=== PATIENT | male | born 1955 | race Caucasian/White ===

== ENCOUNTER 2020-08-15 13:51 | Outpatient (REF) | payer BC, SELFPAY ==
[2020-08-15 14:25] LABS: Hematocrit 48.9 % (42-52); Hemoglobin 16.1 g/dl (14.0-18.0); Mean Corpuscular HGB Conc 32.9 g/dl (31.0-36.0); Mean Corpuscular Hemoglobin 28.8 pg (27.0-33.0); Mean Corpuscular Volume 87.5 fL (80-98); Mean Platelet Volume 9.7 fL (9.4-12.4); Platelet Count 221 X10*3/uL (160-400); Red Blood Count 5.59 X10*6/uL (4.60-5.80); Red Cell Distribution Width 12.8 % (11.0-16.0)
[2020-08-15 14:55] LABS: Alanine Aminotransferase 16 U/L (0-40); Albumin Level 4.4 g/dL (3.5-5.0); Alkaline Phosphatase 65 U/L (39-117); Anion Gap 12 (12-20); Aspartate Amino Transferase 16 U/L (5-37); Bilirubin Total 0.9 mg/dL (0.0-1.0); Blood Urea Nitrogen 20 mg/dL (9-16); Calcium 9.2 mg/dL (8.4-10.2); Carbon Dioxide 31 mmol/L (22-29); Chloride 101 mmol/L (96-108); Cholesterol 173 mg/dL; Estimated Glomerular Filt Rate > 60; Glucose Fasting 89 mg/dL (60-99); HDL Cholesterol 41 mg/dL; LDL Cholesterol Calculated 111 mg/dl; Potassium 3.8 mmol/L (3.3-5.1); Sodium 140 mmol/L (135-145); Total Protein 7.7 g/dL (6.5-8.0); Triglycerides 109 mg/dL
[2020-08-15 14:59] LABS: Creatinine Urine 177.02 mg/dL; Microalbum/Creatinine Ratio Ur 7.3 ug/mg cr
[2020-08-15 15:02] LABS: Prostate Specific Antigen Scr 0.34 ng/mL (<0.05-4.0); TSH reflex Free T4 1.42 uIU/mL (0.32-4.0)
== END 2020-08-15 13:52 | disposition home or self-care (01) ==
LOC: HO.LAB 13:51
PROVIDERS: PCP Physician Assistant; Visit Provider Physician Assistant
DX: Z12.5 Encounter for screening for malignant neoplasm of prostate (principal); E78.2 Mixed hyperlipidemia; I10 Essential (primary) hypertension
CPT/HCPCS: 36415; 80053; 80061; 82043; 84153; 84443; 85027

== ENCOUNTER 2021-03-09 11:39 | Emergency (ER) | payer BC, SELFPAY ==
--- NOTE | ~2021-03-09 | XR_ITS ---
EXAMINATION: XR ANKLE, LEFT CLINICAL INFORMATION: Pain left left ankle. Fall. COMPARISON: None TECHNIQUE: AP, lateral, and mortise views of the left ankle. FINDINGS: There is a nondisplaced fracture distal fibula with moderate lateral malleolar soft tissue swelling. There is old fracture tip of medial malleolus with moderate medial malleolar soft tissue swelling. The ankle mortise and subtalar joints are normal. There is a moderate size calcaneal heel and retrocalcaneal enthesophytes. XR/XR ankle LT min 3V IMPRESSION: Acute nondisplaced distal fibular oblique fracture with moderate lateral malleolar soft tissue swelling. Medial malleolar soft tissue swelling with old small avulsion fracture tip of medial malleolus. Small calcaneal heel and retrocalcaneal enthesophytes.
[2021-03-09 12:15] VITALS: BP 134/106; PULSE 106; RESP 18; TEMP 37.1; O2SAT 96; BMI 29.0
--- NOTE | 2021-03-09 12:25 | ED_ITS ---
HPI - Extremity Injury (Lower) General Chief Complaint: Extremity Injury, Lower Stated Complaint: L ankle injury Time Seen by Provider: 03/09/21 11:54 Source: patient Mode of arrival: ambulatory Limitations: no limitations History of Present Illness HPI Narrative: 65 y/o male presenting for evaluation of left ankle pain and swelling after he twisted it while getting out of bed about 45 minutes ago. He reports the ankle inverted and he fell down onto his left knee. He had immediate pain and swelling on the inside of the left ankle. He is able to walk on it but it is painful and he limps. He is not on blood thinner and he did not sustain any other injuries. MD complaint: ankle injury Onset (ago): hour(s) Type of Injury: inversion Place: home Severity: moderate Severity scale (1-10): 6 Relieving factors: cold therapy and immobilization Exacerbating factors: weight bearing, movement and palpation Context: walking Associated symptoms: swelling and able to partially bear weight Other symptoms: none Treatments prior to arrival: cold therapy Related Data Previous Rx's Medication Instructions Recorded miscellaneous medical supply #1 ea 08/09/20 (Blood Pressure Cuff) amlodipine 10 mg tablet 10 mg PO DAILY #90 tab 02/06/21 hydrochlorothiazide 25 mg tablet 25 mg PO DAILY #90 tab 02/06/21 lisinopril 40 mg tablet 40 mg PO DAILY #90 tab 02/06/21 simvastatin 20 mg tablet 20 mg PO DAILY #90 tab 02/06/21 hydrocodone 5 mg-acetaminophen 325 1 tab PO Q8H PRN #6 tab 03/09/21 mg tablet ibuprofen 600 mg tablet 600 mg PO Q8H PRN #20 tab 03/09/21 Allergies Allergy/AdvReac Type Severity Reaction Status Date / Time No Known Allergies Allergy Verified 08/13/20 18:34 Review of Systems Review of Systems: Constitutional: No Fever, No Chills Cardiovascular: No Chest Pain, No SOB Gastrointestinal: No Nausea, No Vomiting, No abdominal Pain Musculoskeletal: + joint pain, No Myalgias Skin: No Skin Lesions, No rash Neuro: No Weakness, No Numbness, No Dizziness, No Headache Heme/Lymph: + Bruising PMFSH Social History Social History (Updated 08/09/20 @ 17:00 by Colt Mariano PA-C) Alcohol intake: current Alcohol intake frequency: a few times a month Advance Directives: No 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 Physical Exam Vital Signs: Vital Signs: Last Vital Signs Temp 98.8 F 03/09/21 12:15 Pulse 106 H 03/09/21 12:15 Resp 18 03/09/21 12:15 BP 134/106 H 03/09/21 12:15 Pulse Ox 96 03/09/21 12:15 Body Mass Index 29.0 Appearance: Alert. Oriented X3. No acute distress. HEENT: normal inspection CVS: Normal heart rate and rhythm. Pulses normal. Respiratory: No respiratory distress. Skin: Skin warm and dry. Normal skin color. Normal skin turgor. No rashes. Extremities: left ankle with moderate swelling of both the lateral and medial malleolus down into the distal foot with moderate tenderness to the medial aspect. No erythema or warmth. Pain with platarflexion and dorsiflexion. Able to move all digits, 2+ DP pulses. warm and well perfused. Gait not tested due to pain. Neuro: Oriented X 3. No motor deficit. No sensory deficit. Course Course Course Narrative: 65 y/o male presenting with left ankle pain s/p eversion injury this morning. Moderate amount of swelling to the medial ankle. XR pending. Reevaluation(s) Reevaluation #1: XR showing nondisplaced distal fibular oblique fracutre w/ moderate lateral malleolar soft tissue swelling. old small avulsion fx of the medial malleolus. Kya Mendez PA-C made aware of the case - will plan to splint and refer to ortho next week for further management. Patient agrees with plan. NWB status discussed. Reevaluation #2: Splint place by nursing and tech in adequate position. Stable for d/c home and Ortho follow up. Critical Care Time Critical Care Time Critical Care Time: No Discharge Plan Discharge Clinical Impression: Fracture of distal end of fibula Qualifiers: Encounter type: initial encounter Fracture type: closed Fracture morphology: other fracture Laterality: left Qualified Code(s): S82.832A - Other fracture of upper and lower end of left fibula, initial encounter for closed fracture Patient Disposition: Home, Self-Care Instructions: Ankle Fracture (ED) Additional Instructions: Your x-ray showed you broke the end of your fibula bone in your lower leg. Wear the applied splint until you are evaluated by Orthopedics next week Do not get splint wet Do not put any weight on your left foot/leg Elevate your left leg/foot whenever possible Take the prescribed medication as needed for severe pain - do not drive after taking this medication Recommend prescribed ibuprofen to help with mild-moderate pain and swelling. Follow up with Orthopedics - call them on Thursday to make an appointment. Prescriptions: New ibuprofen 600 mg tablet 600 mg PO Q8H PRN (Reason: pain) Qty: 20 RF: 0 hydrocodone-acetaminophen 5-325 mg tablet 1 tab PO Q8H PRN (Reason: pain) Qty: 6 RF: 0 No Action simvastatin 20 mg tablet 20 mg PO DAILY Qty: 90 RF: 1 hydrochlorothiazide 25 mg tablet 25 mg PO DAILY Qty: 90 RF: 1 lisinopril 40 mg tablet 40 mg PO DAILY Qty: 90 RF: 1 amlodipine 10 mg tablet 10 mg PO DAILY Qty: 90 RF: 1 (DME) Blood Pressure Cuff Misc See Rx Instructions .ROUTE .MEDSUPPLY Qty: 1 RF: 0 Referrals: Kya Licona PA-C [Physician [employer]] - 2 days (oblique distal fib fx, nondisplaced) Stand Alone Forms: Work/School Release
[2021-03-09] MEDS: HYDROcodone Bit/Acetam 5/325 TABLET 1 TAB PO (14:50)
== END 2021-03-09 15:40 | disposition home or self-care (01) ==
PROVIDERS: Emergency Provider Emergency Medicine; PCP Internal Medicine
DX: S82.832A Other fracture of upper and lower end of left fibula, initial encounter for closed fracture (principal); X50.1XXA Overexertion from prolonged static or awkward postures, initial encounter; Y93.89 Activity, other specified; Y92.013 Bedroom of single-family (private) house as the place of occurrence of the external cause; Y99.9 Unspecified external cause status
CPT/HCPCS: 29515; 73610; 99284

== ENCOUNTER → 2021-03-11 13:09 | Outpatient (BNVA) | payer BC, SELFPAY | PROVIDERS: PCP Internal Medicine; Visit Provider Physician Assistant ==

== ENCOUNTER 2021-04-05 11:07 | Outpatient (REF) | payer BC, SELFPAY ==
--- NOTE | ~2021-04-05 | XR_ITS ---
EXAMINATION: XR ANKLE, LEFT CLINICAL INFORMATION: Fracture. Pain. COMPARISON: Previous x-ray February 2021 TECHNIQUE: AP, lateral, and mortise views of the left ankle. FINDINGS: There is an oblique fracture of the distal fibular shaft. Fracture line is seen. Alignment is unchanged. There is a triangular-shaped well-corticated ossification projecting over the anterior tibiotalar joint that is unchanged and likely related to old trauma. There is a well-corticated soft tissue ossification seen posterior to the distal fibula and tibia on the lateral view likely related to old trauma as well. There is diffuse soft tissue swelling about the ankle. There may be an ankle joint effusion. There are calcaneal spurs. XR/XR ankle LT min 3V IMPRESSION: Unchanged left lateral malleolar fracture. Soft tissue swelling.
== END 2021-04-05 11:08 | disposition home or self-care (01) ==
LOC: HO.HOSX 11:07
PROVIDERS: PCP Internal Medicine; Visit Provider Physician Assistant
DX: S82.832D Other fracture of upper and lower end of left fibula, subsequent encounter for closed fracture with routine healing (principal)
CPT/HCPCS: 73610

== ENCOUNTER 2021-05-03 08:13 | Outpatient (REF) | payer BC, SELFPAY ==
--- NOTE | ~2021-05-03 | XR_ITS ---
EXAMINATION: XR ANKLE, LEFT CLINICAL INFORMATION: Left ankle pain. COMPARISON: Radiographs of the left ankle done on 04/05/2021 and 03/09/2021. TECHNIQUE: Three views of the left ankle. FINDINGS: Previously documented, clinically known oblique fracture involving the distal part of the left fibula shows no radiographic evidence of healing. Previously documented soft tissue swelling appears improved. Persistent significant soft tissue swelling overlying the medial malleolus. Degenerative osteoarthrosis related changes are noted at the ankle including well-corticated new bone formation projecting inferior to the tip of the malleolus similar to 03/09/2021. Enthesopathy at the insertional site of the Achilles tendon to the calcaneus, small posterior plantar calcaneal spur and mild degenerative osteoarthrosis of the intertarsal joints are also noted, similar to prior study. XR/XR ankle LT min 3V IMPRESSION: 1. No radiographic evidence of healing is noted at the site of the oblique fracture involving the distal fibula since the baseline study dated 03/09/2021. 2. Significant soft tissue swelling overlying the medial malleolus and degenerative osteoarthrosis of the left ankle, intertarsal joints and enthesopathy at the calcaneus appears similar to prior studies.
== END 2021-05-03 08:14 | disposition home or self-care (01) ==
LOC: HO.HOSX 08:13
PROVIDERS: Visit Provider Physician Assistant
DX: S82.832D Other fracture of upper and lower end of left fibula, subsequent encounter for closed fracture with routine healing (principal)
CPT/HCPCS: 73610

== ENCOUNTER 2021-05-03 15:00 | Outpatient (RCR) | payer BC, SELFPAY ==
--- NOTE | 2021-04-18 14:51 | MHC.PT.EP ---
[facility] [place] Office [place] Office [place] Office [address] Vinicius Jaimes [address] [phone] F: [phone] F: [phone] F: [phone] F: [phone] Physical Therapy Plan of Care Date of Evaluation: Date of Surgery: Diagnosis: fx of distal end of L fibula Assessment: 65 y/o M referred to PT with fx distal end of L fibula. He sustained inversion ankle sprain 03/09/21 while getting OOB one morning. He went to ED and distal fibular fx noted. He has been in a tall CAM boot WBAT but has weaned to aso brace. Currently reports pain and difficulty with walking, stairs, standing and work duties. Examination shows decreased ankle AROM, decreased L ankle strength, slightly limited hip strength B, swelling, poor ankle control (signficant difficulty tracing chitimacha/ABCs) and impaired gait pattern. He would benefit from PT 2x/week for 4 weeks to address impairments, implement HEP, and optimize functional mobility. However pt has large co-pay and would like to come 1x/week. Frequency and Duration: The patient will be seen 1x/week for 6 weeks Short Term Goals: 3 weeks 1. I with HEP 2. Improve ankle AROM by 5* all directions 3. Transition to lace up ASO brace per ortho recommendation Software Manager Goals: 6 weeks 1. I with HEP and self management of sx 2. Pt to improve ankle AROM pf by 10* to facilitate walking 3. Pt will be able to ascend/descend stairs in step thorugh pattern with rail and pain < 3/10 Treatment Plan: Modalities to reduce pain, spasms and effusion. Manual therapy to restore motion and function. Therapeutic exercise to improve strength and flexibility. Neuromuscular re-education for posture and balance. Therapeutic activities to return to functional activities of daily living. Electronically signed by: Sylvia Fish PT Please sign and return to therapist. Thank you for your referral.
--- NOTE | 2021-06-04 15:05 | MHC.PT.DC ---
[facility] [place] Office [place] Office [place] Office [address] Vinicius Jaimes [address] [phone] F: [phone] F: [phone] F: [phone] F: [phone] Physical Therapy Discharge Report Diagnosis: fx of distal end of L fibula Date of Surgery: Date of Evaluation: 04/18/21 Date of Discharge: 06/04/21 Treatments to Date: 2 Cancellations to Date: 0 No Shows to Date: 2 Discharge Status: Visit Non-compliance Discharge Summary: He did not f/u with further visits and is d/c at this time. Electronically signed by: Sylvia Fish PT Please sign and return to therapist. Thank you for your referral.
== END 2021-06-04 15:06 | disposition home or self-care (01) ==
LOC: HO.PT 15:00
PROVIDERS: PCP Internal Medicine; Visit Provider Physician Assistant
DX: S82.832D Other fracture of upper and lower end of left fibula, subsequent encounter for closed fracture with routine healing (principal)
CPT/HCPCS: 97110; 97161; 97530

== ENCOUNTER 2021-09-16 13:43 | Outpatient (REF) | payer BC, SELFPAY ==
[2021-09-16 14:45] LABS: Hematocrit 45.7 % (42.0-52.0); Hemoglobin 15.4 g/dl (14.0-18.0); Mean Corpuscular HGB Conc 33.7 g/dl (31.0-36.0); Mean Corpuscular Hemoglobin 28.5 pg (27.0-33.0); Mean Corpuscular Volume 84.5 fL (80.0-98.0); Mean Platelet Volume 9.4 fL (9.4-12.4); Platelet Count 263 X10*3/uL (160-400); Red Blood Count 5.41 X10*6/uL (4.60-5.80); Red Cell Distribution Width 12.6 % (11.0-16.0); White Blood Count 7.6 X10*3/uL (4.8-10.8)
[2021-09-16 15:18] LABS: Alanine Aminotransferase 22 U/L (0-40); Albumin Level 4.6 g/dL (3.5-5.0); Alkaline Phosphatase 72 U/L (39-117); Anion Gap 14 (12-20); Aspartate Amino Transferase 21 U/L (5-37); Bilirubin Total 0.6 mg/dL (0.0-1.0); Blood Urea Nitrogen 12 mg/dL (9-16); Calcium 9.6 mg/dL (8.4-10.2); Carbon Dioxide 26 mmol/L (22-29); Chloride 102 mmol/L (96-108); Cholesterol 150 mg/dL; Estimated Glomerular Filt Rate > 60; Glucose Fasting 92 mg/dL (60-99); HDL Cholesterol 49 mg/dL; LDL Cholesterol Calculated 78 mg/dl; Potassium 3.8 mmol/L (3.3-5.1); Sodium 138 mmol/L (135-145); Total Protein 8.1 g/dL (6.5-8.0); Triglycerides 117 mg/dL
[2021-09-16 15:43] LABS: Prostate Specific Antigen Scr 0.37 ng/mL (<0.05-4.0); TSH reflex Free T4 1.99 uIU/mL (0.32-4.0)
[2021-09-16 17:35] LABS: Creatinine Urine 91.71 mg/dL; Microalbum/Creatinine Ratio Ur 23.9 ug/mg cr
== END 2021-09-16 13:44 | disposition home or self-care (01) ==
LOC: HO.LAB 13:43
PROVIDERS: PCP Physician Assistant; Visit Provider Physician Assistant
DX: Z12.5 Encounter for screening for malignant neoplasm of prostate (principal); I10 Essential (primary) hypertension
CPT/HCPCS: 36415; 80053; 80061; 82043; 84153; 84443; 85027

== ENCOUNTER 2021-10-30 13:51 | Outpatient (REF) | payer BC, SELFPAY ==
--- NOTE | ~2021-10-30 | US_ITS ---
EXAMINATION: US RETROPERITONEAL LIMITED (AORTA) CLINICAL INFORMATION: Hypertension. Former smoker. Screening for abdominal aortic aneurysm. COMPARISON: None TECHNIQUE: Caicedo-scale, color Doppler and spectral Doppler evaluation of the abdominal aorta. FINDINGS: The measurements of the aorta in maximum AP and transverse dimensions respectively are as follows: Proximal: 3.0 x 2.9 cm. Mid: 2.6 x 2.5 cm. Distal: 2.0 x 2.2 cm. PSV: 121 cm/s. The measurements of the common iliac arteries in maximum AP and TRV dimensions are as follows: Right: AP: 1.3 cm. TRV: 1.5 cm. Left: AP: 1.3 cm. TRV: 1.5 cm. ADDITIONAL FINDINGS: Left kidney appears to be at the level of the umbilicus questionably being ectopic. No bridging with appearance of horseshoe kidney is appreciated on the provided imaging. US/US aorta IMPRESSION: No abdominal aortic aneurysm identified.
== END 2021-10-30 13:52 | disposition home or self-care (01) ==
LOC: HO.HMGCX 13:51
PROVIDERS: Visit Provider Physician Assistant
DX: I10 Essential (primary) hypertension (principal); F17.200 Nicotine dependence, unspecified, uncomplicated
CPT/HCPCS: 76775

== ENCOUNTER 2022-04-22 10:43 | Day surgery (SDC) | payer BC, SELFPAY ==
[2022-04-16 14:18] VITALS: BMI 29.0
--- NOTE | 2022-04-21 11:00 | P.CONAN_ITS ---
Documented by User: Andreea Way NP 04/21/22 11:01 HPI - Anesthesia Eval Consult details Narrative: 66yo M for Upper Endoscopy and Colonoscopy PMFSH Active Problems Active Problems: All Active Problems (Updated 03/13/22 @ 15:53 by Colt Mariano PA-C) Epigastric pain (Acute) Encounter for screening colonoscopy (Acute) Obese (Acute) Tinea versicolor (Acute) GERD (gastroesophageal reflux disease) (Acute) Smoker (Acute) Screening for AAA (abdominal aortic aneurysm) (Acute) Fracture of distal end of left fibula with routine healing (Acute) Fracture of distal end of left fibula (Acute) Colon cancer screening (Acute) HLD (hyperlipidemia) (Acute) HTN (hypertension) (Acute) Annual physical exam (Acute) Past Medical History Medical History GERD (gastroesophageal reflux disease) HLD (hyperlipidemia) HTN (hypertension) Surgical History Surgical History Hx of colonoscopy Social History Social History Housing: House Alcohol intake: current Alcohol intake frequency: a few times a month Patient Tobacco Use Status: Never used Tobacco Use of substances other than those prescribed or required for medical reasons: No Are you DNR?: No Advance Directives: No Advance Directives Information Provided: Yes Current occupational status: employed 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 Allergies Allergy/AdvReac Type Severity Reaction Status Date / Time No Known Allergies Allergy Verified 04/22/22 11:58 Exam Exam Date and Time: April 21, 2022 1100 Height,Weight and Vital Signs: Height 5 ft 6 in Weight 81.647 kg Pertinent Lab Results Pertinent Lab Results: Laboratory Tests 09/16/21 09/16/21 14:13 14:13 WBC 7.6 Hgb 15.4 Hct 45.7 Plt Count 263 Sodium 138 Potassium 3.8 Chloride 102 Carbon Dioxide 26 BUN 12 Creatinine 0.90 Assessment and Plan Assessment Anesthesia Assessment: Chart Reviewed Documented by User: Vincenzo Epperson MD 04/22/22 12:21 PMFSH Past Medical History Medical History GERD (gastroesophageal reflux disease) HLD (hyperlipidemia) HTN (hypertension) Family History Family history of problems with anesthesia: No Surgical History Surgical History Hx of colonoscopy History of Problems with Anesthesia: No Social History Social History Housing: House Alcohol intake: current Alcohol intake frequency: a few times a month Patient Tobacco Use Status: Never used Tobacco Use of substances other than those prescribed or required for medical reasons: No Are you DNR?: No Advance Directives: No Advance Directives Information Provided: Yes Current occupational status: employed 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 Allergies Allergy/AdvReac Type Severity Reaction Status Date / Time No Known Allergies Allergy Verified 04/22/22 11:58 Exam Airway Mallampati Class: II TM Dist: >3cm Neck ROM: Full Loose/Missing/Broken Teeth: No Heart: rrr+[id number] Lungs: cta b/l Assessment and Plan Assessment Anesthesia Assessment: Anesthesia Plan Discussed Final Anesthetic Review Family History of Problems with Anesthesia: No History of Problems with Anesthesia: No NPO: Yes ASA Class: III Final Preanesthetic Review: No Changes in Pt Med Stat, Meds/Allgs Chart Reviewed, Consent Obtained/Reviewed and Anes Risks/Benef Reviewed Patient Risk: Intermediate Procedure Risk: Intermediate Assessment/Block/Sedation in SS: Assess/Block/Sedation-SS Anesthetic Plan Anesthetic Plan: MAC: and Agree w/ Assess. and Plan Disposition: Standard PACU
[2022-04-22 10:55] VITALS: BP 128/81; PULSE 95; RESP 16; TEMP 36.8; O2SAT 97
[2022-04-22] MEDS: Lactated Ringers 1,000 ML 100 ML IVCONT (11:07)
--- NOTE | 2022-04-22 11:22 | MHC.SHP ---
Pre-Procedural Eval Section A Date of Service: 04/22/22 The patient is an INPATIENT: No The History & Physical has been completed within 30 days and I have reviewed it.: No Section B Chief Complaint: screening, GERD, abdominal pain Relevant Family History (Specify if Yes): No Relevant Social History: Tobacco Use Present Medications: see Short Stay Collaborative assessment Medical History: Significant History (GERD, hypertension, hyperlipidemia) History of Previous Operations: Relevant previous surgery/procedure and date(s) (History of colonoscopy) Allergies: Allergies Allergy/AdvReac Type Severity Reaction Status Date / Time No Known Allergies Allergy Verified 03/13/22 15:28 Review of Systems Sugical H&P ROS: Negative: Constitution, Cardiovascular and Respiratory and Yes, Specify: Gastrointestinal (GERD, abdominal pain) Exam Surgical H&P Exam: Normal: Heart, Normal: Lungs, Normal: Extremities and Normal: Abdomen Plan Diagnosis/Plan: Change (add EGD for evaluation of abdominal pain) I have reviewed the history and physical and performed a pertinent physical examination on my patient. No changes have occurred unless specified.
--- NOTE | 2022-04-22 11:23 | P.BOP_ITS ---
Brief Operative Note Date of Service: 04/22/22 Pre-op diagnosis: GERD , abdominal pain, colon cancer screening Post-op diagnosis: other (GERD, gastritis, gastric nodules, colon polyp, diverticulosis, hemorrhoids) Procedure: FLEXIBLE TRANSORAL UPPER GASTROINTESTINAL ENDOSCOPY WITH BIOPSIES AND COLONOSCOPY TILL CECUM WITH BIOPSIES UPPER ENDOSCOPY Consent: Indications for the procedure and potential complications of bleeding, perforation, reaction to medications and missed diagnosis were discussed with the patient and informed consent was obtained. Instrument: Olympus GIF H 190 mid size upper endoscope Monitoring: Vital signs and clinical assessment, continuous EKG monitoring, Pulse oximetry, Carbon Dioxide monitoring and blood pressure monitoring were done throughout the procedure. Procedure: The patient was placed in the left lateral decubitis position and pre-procedure medications were administered and a bite block was placed. The endoscope was inserted into the mouth and advanced under direct vision to the third part of duodenum. A careful inspection was made as the upper endoscope was withdrawn including a retroflexed examination of the proximal stomach; Findings and interventions are described below. Findings: Larynx: Normal Esophagus: GE junction at 38 cms. Irregular Z line - biopsied to check for Sweeney's. Stomach: Moderate gastric erythema with multiple 8 to 10 mm benign appearing nodules with central erosions in the antrum - biopsied. Antral biopsies were obtained to check for H Pylori. Grade 2 flap valve on retroflexed examination of the cardia. Duodenum: Duodenitis with a few erosions in the bulb and normal descending duodenum Intervention: Biopsies as noted above COLONOSCOPY PROCEDURE NOTE Consent: Indications for the procedure and potential complications of bleeding, perforation, reaction to medications and missed diagnosis were discussed with the patient and informed consent was obtained. Instrument: Olympus PCF H 190 L variable stiffness pediatric colonoscope Monitoring: Vital signs and clinical assessment, intermittent blood pressure monitoring, continuous EKG monitoring, Pulse oximetry and Carbon Dioxide monitoring were done throughout the procedure. Colon withdrawl time was 14 minutes. Procedure: The patient was placed in the left lateral decubitis position and pre-procedure medications were administered. After a digital rectal examination of the ano-rectum, the video colonoscope was inserted into the rectum and advanced through the colon to the cecum. The colonoscope was slowly withdrawn in a retrograde panoramic fashion and the colon mucosa was carefully examined including a retroflexed view of the rectum. Findings and interventions are described below. Procedure Difficulty: : Without difficulty Findings: Terminal Ileum: Not evaluated Cecum: Normal Ascending Colon: A 4-5 mm diminutive appearing polyp in the distal AC removed with a cold biopsy. Moderate scattered diverticulosis throughout the colon Transverse Colon: Moderate scattered diverticulosis throughout the colon Descending Colon: Moderate scattered diverticulosis throughout the colon Sigmoid Colon: Severe diverticulosis Rectum: Normal Ano-rectum: Moderate internal hemorrhoids Colon preparation: Good after some irrigation Impression and Post Procedure Diagnosis: Endoscopy Findings: ESOPHAGUS: GE junction at 38 cms. Irregular Z line - biopsied to check for Sweeney's. STOMACH: Moderate gastric erythema with multiple 8 to 10 mm benign appearing nodules with central erosions in the antrum - biopsied. Antral biopsies were obtained to check for H Pylori. Grade 2 flap valve on retroflexed examination of the cardia. DUODENUM: Duodenitis with a few erosions in the bulb and normal descending duode num Colonoscopy Findings: One small polyp removed Moderate diverticulosis seen in the entire colon - left > right Moderate hemorrhoids on retroflexed exam. Plan: Await pathology results Patient has an appointment on 05/05/22 in the GI Clinic with LIZETH Booth . Repeat Colonoscopy interval based on path results - in 5 years if polyps are adenomatous and 10 years if polyps are hyperplastic. Above findings were reviewed with the patient and GERD, colon polyps and diverticulosis handouts were given in the discharge area Surgeon: Patricia Bryan MD Anesthesia: MAC Was an Customer Service Agent used for this Procedure?: Yes Customer Service Agent: Aspen Beckett Estimated blood loss (mL): 0 Pathology: other (A. small bowel bxs, R/O celiac B. gastric antrum, R/O H. pylori C. gastric antrum nodules D. G-E junction bxs, R/O Sweeney's E. ascending colon polyp) Condition: stable Disposition: PACU
--- NOTE | 2022-04-22 12:21 | W.PM.OPN ---
Operative Note Operative Note Date of Service: 04/22/22 Narrative: Pre-op diagnosis: GERD , abdominal pain, colon cancer screening Post-op diagnosis:?other (GERD, gastritis, gastric nodules, colon polyp, diverticulosis, hemorrhoids) Procedure: FLEXIBLE TRANSORAL UPPER GASTROINTESTINAL ENDOSCOPY WITH BIOPSIES AND COLONOSCOPY TILL CECUM WITH BIOPSIES UPPER ENDOSCOPY Consent:?Indications for the procedure and potential complications of bleeding, perforation, reaction to medications and missed diagnosis were discussed with the patient and informed consent was obtained. Instrument:?Olympus GIF H 190 mid size upper endoscope Monitoring: Vital signs and clinical assessment, continuous EKG monitoring, Pulse oximetry, Carbon Dioxide monitoring and blood pressure monitoring were done throughout the procedure. Procedure:?The patient was placed in the left lateral decubitis position and pre-procedure medications were administered and a bite block was placed. The endoscope was inserted into the mouth and advanced under direct vision to the third part of duodenum. A careful inspection was made as the upper endoscope was withdrawn including a retroflexed examination of the proximal stomach; Findings and interventions are described below. Findings: Larynx:? Normal Esophagus:?GE junction at 38 cms.? Irregular Z line - biopsied to check for Sweeney's. Stomach:?Moderate gastric erythema with multiple 8 to 10 mm benign appearing nodules with central erosions in the antrum - biopsied. Antral biopsies were obtained to check for H Pylori. Grade 2 flap valve on retroflexed examination of the cardia. Duodenum:?Duodenitis with a few erosions in the bulb and normal descending duodenum Intervention:?Biopsies as noted above COLONOSCOPY PROCEDURE NOTE Consent:?Indications for the procedure and potential complications of bleeding, perforation, reaction to medications and missed diagnosis were discussed with the patient and informed consent was obtained. Instrument:?Olympus PCF H 190 L variable stiffness pediatric colonoscope Monitoring:?Vital signs and clinical assessment, intermittent blood pressure monitoring, continuous EKG monitoring, Pulse oximetry and Carbon Dioxide monitoring were done throughout the procedure. Colon withdrawl time was 14 minutes. Procedure:?The patient was placed in the left lateral decubitis position and pre-procedure medications were administered. After a digital rectal examination of the ano-rectum, the video colonoscope was inserted into the rectum and advanced through the colon to the cecum. The colonoscope was slowly withdrawn in a retrograde panoramic fashion and the colon mucosa was carefully examined including a retroflexed view of the rectum. Findings and interventions are described below. Procedure Difficulty:?: Without difficulty Findings: Terminal Ileum: Not evaluated Cecum:? Normal Ascending Colon:??A 4-5 mm diminutive appearing polyp in the distal AC removed with a cold biopsy. Moderate scattered diverticulosis throughout the colon Transverse Colon:??Moderate scattered diverticulosis throughout the colon Descending Colon:? Moderate scattered diverticulosis throughout the colon Sigmoid Colon:??Severe diverticulosis Rectum:??Normal Ano-rectum:??Moderate internal hemorrhoids Colon preparation:? Good after some irrigation Impression and Post Procedure Diagnosis: Endoscopy Findings: ESOPHAGUS:?GE junction at 38 cms.? Irregular Z line - biopsied to check for Sweeney's. STOMACH:?Moderate gastric erythema with multiple 8 to 10 mm benign appearing nodules with central erosions in the antrum - biopsied. Antral biopsies were obtained to check for H Pylori. Grade 2 flap valve on retroflexed examination of the cardia. DUODENUM:?Duodenitis with a few erosions in the bulb and normal descending duodenum Colonoscopy Findings: One small polyp removed Moderate diverticulosis seen in the entire colon - left > right Moderate hemorrhoids on retroflexed exam. Plan: Await pathology results Patient has an appointment on 05/05/22 in the [facility] with LIZETH Booth . Repeat Colonoscopy interval based on path results - in 5 years if polyps are adenomatous and 10 years if polyps are hyperplastic. Above findings were reviewed with the patient and GERD, colon polyps and diverticulosis handouts were given in the discharge area Surgeon: Patricia Bryan MD Anesthesia:?MAC Was an Supervisor Uranium Processing used for this Procedure?:?Yes Supervisor Uranium Processing:?Aspen Beckett Estimated blood loss (mL):?0 Pathology:?other (A. small bowel bxs, R/O celiac? B. gastric antrum, R/O H. pylori? C. gastric antrum nodules? D. G-E junction bxs, R/O Sweeney's? E. ascending colon polyp) Condition:?stable Disposition:?PACU
[2022-04-22 13:16] VITALS: BP 113/78; PULSE 99; RESP 20; TEMP 36.6; O2SAT 93
[2022-04-22 13:31] VITALS: BP 131/84; PULSE 90; RESP 20; TEMP 36.7; O2SAT 97
--- NOTE | 2022-04-22 14:21 | PC.NURSE ---
Patient requested to use bathroom and was brought to bathroom in waiting room. Author went to check on patient in bathroom and he had left on his own. Patient was aware that his ride was downstairs. All discharge paperwork was completed/signed and already in chart and patient has own copies.
== END 2022-04-22 14:23 | disposition home or self-care (01) ==
PROVIDERS: PCP Physician Assistant; Visit Provider Internal Medicine Gastroenterology
PROC: (CPT 45380; principal; 2022-04-22 11:50)
DX: Z12.11 Encounter for screening for malignant neoplasm of colon (principal); K63.5 Polyp of colon; K57.30 Diverticulosis of large intestine without perforation or abscess without bleeding; K64.8 Other hemorrhoids; K21.9 Gastro-esophageal reflux disease without esophagitis; K29.50 Unspecified chronic gastritis without bleeding; K29.80 Duodenitis without bleeding; K31.7 Polyp of stomach and duodenum; I10 Essential (primary) hypertension; E78.5 Hyperlipidemia, unspecified; Z79.899 Other long term (current) drug therapy; Z79.1 Long term (current) use of non-steroidal anti-inflammatories (NSAID)
CPT/HCPCS: 45380; 43239; 88305; 88342

== ENCOUNTER 2022-06-06 14:09 | Outpatient (REF) | payer BC, SELFPAY ==
--- NOTE | ~2022-06-06 | US_ITS ---
EXAMINATION: US ABDOMEN LIMITED CLINICAL INFORMATION: Epigastric pain, right upper quadrant pain. Rule out cholecystitis. COMPARISON: None TECHNIQUE: Real-time imaging of the right upper quadrant abdominal viscera. FINDINGS: PANCREAS: Normal. LIVER: Normal. The liver is normal in size. The liver contour is normal. Parenchymal echogenicity is normal. No focal hepatic lesion. There is no intrahepatic biliary duct dilatation seen. GALLBLADDER: Normal. The gallbladder is physiologically distended without evidence of stones, sludge, polyps, wall thickening or pericholecystic fluid. COMMON BILE DUCT: Normal in caliber measuring 0.4 cm in diameter. RIGHT KIDNEY: Benign appearing 0.7 cm renal cyst, no imaging follow-up recommended. No hydronephrosis or renal calculi. The kidney measures 12.2 cm in maximum dimension. FREE FLUID: None. US/US abdomen limited IMPRESSION: No cholelithiasis or evidence of acute cholecystitis.
== END 2022-06-06 14:10 | disposition home or self-care (01) ==
LOC: HO.US 14:09
PROVIDERS: Visit Provider Physician Assistant
DX: R10.13 Epigastric pain (principal)
CPT/HCPCS: 76705

== ENCOUNTER → 2022-09-01 14:54 | Outpatient (BNVA) | payer BC, SELFPAY | PROVIDERS: PCP Physician Assistant; Visit Provider Physician Assistant | DX: Z13.89 Encounter for screening for other disorder (principal) ==

== ENCOUNTER 2022-09-16 14:25 | Outpatient (REF) | payer BC, SELFPAY ==
[2022-09-16 15:11] LABS: Hematocrit 45.4 % (42.0-52.0); Hemoglobin 15.1 g/dl (14.0-18.0); Mean Corpuscular HGB Conc 33.3 g/dl (31.0-36.0); Mean Corpuscular Hemoglobin 28.5 pg (27.0-33.0); Mean Corpuscular Volume 85.8 fL (80.0-98.0); Mean Platelet Volume 9.6 fL (9.4-12.4); Platelet Count 272 X10*3/uL (160-400); Red Blood Count 5.29 X10*6/uL (4.60-5.80); Red Cell Distribution Width 13.4 % (11.0-16.0); White Blood Count 7.9 X10*3/uL (4.8-10.8)
[2022-09-16 15:53] LABS: Alanine Aminotransferase 22 U/L (0-40); Albumin Level 4.4 g/dL (3.5-5.0); Alkaline Phosphatase 67 U/L (39-117); Anion Gap 13 (12-20); Aspartate Amino Transferase 19 U/L (5-37); Bilirubin Total 0.8 mg/dL (0.0-1.0); Blood Urea Nitrogen 16 mg/dL (9-16); Calcium 9.6 mg/dL (8.4-10.2); Carbon Dioxide 30 mmol/L (22-29); Chloride 102 mmol/L (96-108); Cholesterol 166 mg/dL; Estimated Glomerular Filt Rate > 60; Glucose Fasting 82 mg/dL (60-99); HDL Cholesterol 41 mg/dL; LDL Cholesterol Calculated 111 mg/dl; Potassium 4.6 mmol/L (3.3-5.1); Sodium 140 mmol/L (135-145); Total Protein 7.5 g/dL (6.5-8.0); Triglycerides 71 mg/dL
[2022-09-16 16:08] LABS: Prostate Specific Antigen Scr 0.33 ng/mL (<0.05-4.0); TSH reflex Free T4 1.36 uIU/mL (0.32-4.0)
[2022-09-16 17:01] LABS: Creatinine Urine 31.68 mg/dL; Microalbumin Urine < 5.0 mg/L
== END 2022-09-16 14:26 | disposition home or self-care (01) ==
LOC: HO.LAB 14:25
PROVIDERS: PCP Physician Assistant; Visit Provider Physician Assistant
DX: I10 Essential (primary) hypertension (principal); E78.2 Mixed hyperlipidemia; Z12.5 Encounter for screening for malignant neoplasm of prostate
CPT/HCPCS: 36415; 80053; 80061; 82043; 84153; 84443; 85027

== ENCOUNTER 2024-10-05 15:32 | Outpatient (AMB) | payer BC, SELFPAY ==
[2024-10-05 15:37] VITALS: BP 150/90; PULSE 95; TEMP 36.7; O2SAT 95; BMI 32.0
--- NOTE | 2024-10-05 15:37 | A.OFFPC_ITS ---
Vital Signs 10/05/24 15:37 Height 5 ft 6 in Weight 198 lb 6 oz BMI 32.0 BP 150/90 H Blood Pressure Location Lt brachial Position Sitting Pulse 95 Pulse Source Pulse Oximeter Temp 98.0 F Temp Source Temporal Artery Scan Pulse Oximetry (%) 95 Oxygen Delivery Method Room Air Intake Visit Reasons: annual exam Community Action Worker Required: No Accompanied by: Self / Same As Patient Allergies No Known Allergies Allergy (Verified 10/05/24 15:52) Medication List - Last Reconciled 10/05/24 by Colt Mariano PA-C amlodipine 10 mg PO DAILY 90 days hydrochlorothiazide 25 mg PO DAILY lisinopril 40 mg PO DAILY miscellaneous medical supply (Blood Pressure Cuff) As directed omeprazole 20 mg PO BID 90 days simvastatin 20 mg PO DAILY 30 days Tobacco use date assessed: 10/05/24 Fall risk assessment: No Falls in past year Last assessed Fall Risk: 10/05/24 Dental Screening Dental Screen Date: 10/05/24 Did you have a dental visit in the last 12 months?: Yes Did you have a dental problem in the last 6 months where you did not have access to dental care?: No Was dental information given to patient?: Patient has dentist HPI annual exam HPI Details Patient is a 69-year-old male here today for routine annual physical. Patient's past medical history significant for hypertension, obesity, GERD with Sweeney's esophagus. . Hypertension: Pressure remains elevated today in office, he reports his blood pressure usually stable though he has been under lot of stress lately. He denies any chest pain, headache or vision issues. .. GERD/Sweeney's esophagus: His past endoscopy showing Sweeney's, he continues on omeprazole 20 mg daily which he reports reduce his his GERD symptoms significantly Colonoscopy: Up-to-date done 2021 needs repeat in 5 years Vaccines: Up-to-date with tetanus vaccine, COVID vaccine, up-to-date with pneumonia vaccine, PFSH Medical History GERD (gastroesophageal reflux disease) HLD (hyperlipidemia) HTN (hypertension) Surgical History History of esophagogastroduodenoscopy (EGD) Hx of colonoscopy Social History Housing: House Alcohol intake: current Alcohol intake frequency: a few times a month Patient Tobacco Use Status: Never used Tobacco e-Cigarette/Vaping Use: Never Used Current occupational status: employed 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 Cognitive needs: No Hearing needs: No Vision needs: Yes Questionnaire PHQ-9 Over the last 2 weeks, how often have you been bothered by any of the following problems? 1. Little interest or pleasure in doing things: not at all 2. Feeling down, depressed, or hopeless: not at all 3. Trouble falling or staying asleep, or sleeping too much: not at all 4. Feeling tired or having little energy: not at all 5. Poor appetite or overeating: not at all 6. Feeling bad about yourself - or that you are a failure or have let yourself or your family down: not at all 7. Trouble concentrating on things, such as reading the newspaper or watching television: not at all 8. Moving or speaking so slowly that other people could have noticed. Or the opposite - being so fidgety or restless that you have been moving around a lot more than usual: not at all 9. Thoughts that you would be better off or of hurting yourself in some way: not at all Total score: 0 Depression Screening Interpretation: Negative Depression Screening Done: Yes 29234 - PHQ-9 Billing: Yes Source: Developed by Drs. Son Gray, Angélica Duarte, Domenico Manuel and colleagues, with an educational brendon from [employer]. Thrive Questionnaire Date Thrive assessed: 10/05/24 I am a: Patient What is your living situation today?: I have a steady place to live Within the past 12 months, did the food you bought not last and you didn't have the money to get more?: Never true Within the past 12 months, did you worry whether your food would run out before you got money to buy more?: Never true Do you have trouble paying for medicines?: No Do you have trouble getting transportation to medical appointments?: No Do you have trouble paying your heating and electricity bill?: No Do you have trouble taking care of your child, family member or friend?: No Do you have trouble with day-to-day activities such as bathing, preparing meals, shopping, managing finances, etc.?: No Are you currently unemployed and looking for a job?: No Are you interested in more education?: No Please select the resources that you would like help with: None Currently or been in a relationship where the following occur: No concerns reported THRIVE Score: 0 AUDIT C Alcohol Use Questionnaire (AUDIT-C) 1. How often do you have a drink containing alcohol?: Never 3. How often do you have six or more drinks on one occasion?: Never Total Score: 0 MANNY-7 AMB Questionnaire MANNY-7 Date MANNY - 7 assessed: 10/05/24 Feeling nervous, anxious, or on edge: 0 = Not at all Not being able to stop or control worryin = Not at all Worrying too much about different things: 0 = Not at all Trouble relaxin = Not at all Being so restless that it is hard to sit still: 0 = Not at all Becoming easily annoyed or irritable: 0 = Not at all Feeling afraid as if something awful might happen: 0 = Not at all Total MANNY-7 score (0-4 normal; 5-9 mild; 10-14 moderate; 15-21 severe): 0 Source: Developed by Drs. Son Gray, Angélica Duarte, Domenico Manuel and colleagues, with an educational brendon from [employer]. MANNY-7 Assessment Billing MANNY-7 Assessment Tool: MANNY-7 Assessment 15244 Review of Systems Const Denies body aches, Denies chills, Denies excessive sweating, Denies fatigue, Denies fever(s) and Denies headache(s) Eyes Denies blurry vision ENT Denies dysphagia, Denies vertigo, Denies dizziness, Denies headache(s), Denies hearing loss and Denies tinnitus Card Denies chest pain, Denies chest pain with activity, Denies syncope, Denies irregular heart rhythm and Denies dyspnea Resp Denies chest congestion, Denies cough, Denies hemoptysis, Denies dyspnea and D enies wheezing GI Denies abdominal pain, Denies melena, Denies hematochezia, Denies coffee ground emesis, Denies dysphagia, Denies diarrhea, Denies nausea and Denies vomiting Denies difficulty urinating, Denies dysuria, Denies urinary frequency, Denies urinary hesitancy and Denies urinary urgency Musc Denies arthralgias, Denies limited range of motion, Denies muscle cramps and Denies muscle weakness Skin/Breast Denies rash and Denies skin ulcer Neuro Denies Abnormal speech present, Denies confusion, Denies vertigo, Denies dizziness, Denies syncope, Denies headache(s), Denies memory loss and Denies seizure-like activity Psych Denies anxiety, Denies confusion, Denies depression, Denies memory loss, Denies panic attacks and Denies paranoia Endo Denies excessive sweating, Denies fatigue, Denies flushing, Denies polydipsia and Denies polyuria Aller/Immun Denies wheezing Physical exam (Primary Care) Vital Signs: Last Vital Signs Temp 98.0 F 10/05/24 15:37 Pulse 95 10/05/24 15:37 BP 150/90 H 10/05/24 15:37 Pulse Ox 95 10/05/24 15:37 Oxygen Delivery Method Room Air 10/05/24 15:37 Care Plan Goal for BP management: Continue current doses of antihypertensive medication- Next steps: 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- monitor blood pressure at home more closely BMI result Body Mass Index 32.0 BMI Assessment/Plan discussion: High BMI High, discussed plan: lifestyle, weight reduction, dietary and physical activity Tobacco/Smoking Status: Tobacco use Status Tobacco use date assessed 10/05/24 10/05/24 15:42 Patient Tobacco Use Status Never used Tobacco 10/05/24 15:42 e-Cigarette/Vaping Use Never Used 10/05/24 15:42 PHQ-9: PHQ-9 Score PHQ-9: Total score 0 10/05/24 15:54 Depression Screening Interpretation: Negative Thrive Assessment: Date of Thrive Assessment Date Thrive assessed 10/05/24 10/05/24 15:42 Currently or been in a relationship where the following occur: No concerns reported Const General: cooperative, comfortable, no acute distress, alert and awake; No confusion Orientation/consciousness: oriented to person, oriented to place, patient oriented x3 and No confusion HENMT Head: Yes normocephalic Ears: external ears normal and TM's normal bilaterally Face and sinus: No sinus tenderness Mouth: Normal oral and palatal mucosa present and tongue normal Teeth and gingiva: dentition normal and gingiva normal Throat: Yes posterior oropharynx normal, Yes tonsils normal and Yes uvula midline Eyes Conjunctivae: conjunctivae normal Sclerae: sclerae normal Pupils: Equal, round and reactive pupils present EOM: EOMs intact bilaterally Direct Ophthalmoscopy: No no photophobia Neck Neck: Yes no lymphadenopathy, No tender and Yes no JVD Thyroid: Thyroid normal Carotids: no bruits Chest Chest palpation & inspection: no tenderness Resp Effort & Inspection: normal respiratory effort, no audible wheezes, not labored and no stridor Auscultation: no crackles, no rales, no rhonchi and no wheezes Cardio Jugular venous distension: no JVD Rate: regular rate, not bradycardic and not tachycardic Rhythm: regular rhythm Bruits: no carotid bruits Peripheral pulses: Peripheral pulses 2+ throughout GI Inspection: Yes normal to inspection, No abdominal wall ecchymosis and No visible herniation Palpation (GI): Soft to palpation, nontender, no guarding, not rigid and No hepatosplenomegaly present Auscultation: normoactive bowel sounds General: Yes no CVA tenderness Back/Spine/Pelvis Back: no CVA tenderness and No back tenderness Cervical Spine: cervical ROM normal Thoracic/Lumbar Spine: thoracic and lumbar spine normal to inspection, straight leg raise negative bilaterally, No thoraco-lumbar ROM limited and No lumbar spinal tenderness Skin Lesions: no lesions Rashes: no rashes Wounds: no wounds Neuro General: oriented to person, oriented to place, patient oriented x3, CN's II-XI intact bilaterally and No confusion Cranial nerves: Yes Equal, round and reactive pupils present and Yes Normal accommodation reflex present Cognition (Neuro): normal cognition Speech: No Abnormal speech present Gait exam (Neuro): Normal gait present Motor exam (neuro): 5/5 motor strength present throughout Extrem Right upper extremity: full ROM; no cyanosis Left upper extremity: full ROM; no cyanosis Right lower extremity: no edema Left lower extremity: no edema Psych Appearance: grossly normal Mental Status: mental status grossly normal Affect: normal affect Attitude: cooperative Thought process: Normal thought process present Coding Level of Care Code Est Pt Prev Care >65y(07540) Diagnoses Annual physical exam Z00.00 Mixed hyperlipidemia E78.2 Hyperlipidemia type: mixed hyperlipidemia Essential hypertension I10 Hypertension type: essential hypertension Class 1 obesity E66.811 Sweeney's esophagus without dysplasia K22.70 Additional Codes MANNY-7 Assessment Billing - MANNY-7 Assessment Tool: MANNY-7 Assessment 79803 ([id number]) PHQ-9 - 46942 - PHQ-9 Billing: Yes ([id number]) Assessment & Plan Assessment & Plan (1) Annual physical exam: Code(s): Z00.00 - Encounter for general adult medical examination without abnormal findings Category: Medical Plan: As per HPI (2) HLD (hyperlipidemia): Code(s): E78.5 - Hyperlipidemia, unspecified Category: Medical Qualifiers: Hyperlipidemia type: mixed hyperlipidemia Qualified Code(s): E78.2 - Mixed hyperlipidemia Plan: Will recheck fasting lipid panel, he reports he has not been taking simvastatin. Goal LDL to be below 130 (3) HTN (hypertension): Code(s): I10 - Essential (primary) hypertension Category: Medical Qualifiers: Hypertension type: essential hypertension Qualified Code(s): I10 - Essential (primary) hypertension Plan: Patient's blood pressure slightly elevated today in office. He reports he has been under lot of stress. He is adherent to taking all of his blood pressure medication. For now will continue his current blood pressure med regime. Advised to monitor blood pressure at home with goal blood pressure to be below 140/90 (4) Class 1 obesity: Code(s): E66.811 - Obesity, class 1 Category: Medical Plan: Patient does understand his BMI is over 30 will work on being more physically active and adapting to better eating habits to reduce his weight (5) Sweeney's esophagus without dysplasia: Comment: Sweeney's esophagus, no dysplasia typically repeat 2-3 years Code(s): K22.70 - Sweeney's esophagus without dysplasia Category: Medical Plan: Patient has a history of Sweeney's esophagus found on endoscopy few years ago. He continues on omeprazole 20 mg which resolves his GERD symptoms. He is due for repeat colonoscopy in 2026. Orders: Orders Microalbumin, Random (w Creat) 10/05/24 I10 - Essential (primary) hypertension Comprehensive [place]. Panel Fast 10/05/24 I10 - Essential (primary) hypertension Lipid Panel 10/05/24 E78.2 - Mixed hyperlipidemia Complete Blood Count no Diff 10/05/24 I10 - Essential (primary) hypertension Prostate Specific Antigen Scr 10/05/24 E78.2 - Mixed hyperlipidemia, Z12.5 - Encounter for screening for malignant neoplasm of prostate Medications: Changed From simvastatin 20 mg PO DAILY 30 tabs 0RF E78.2 - Mixed hyperlipidemia To simvastatin 20 mg PO DAILY 30 tabs 3RF 30 days E78.2 - Mixed hyperlipidemia Refilled omeprazole 20 mg PO BID 180 caps 3RF 90 days K21.9 - Gastro-esophageal reflux disease without esophagitis Patient Instructions: Goal: Blood pressure to be below 140/90, LDL to remain below 130 Barriers: Adherence to physical activity and healthy eating habits
== END 2024-10-05 16:44 | disposition home or self-care (01) ==
LOC: HO.HMCH 15:32
PROVIDERS: PCP Physician Assistant; Visit Provider Physician Assistant
DX: Z00.00 Encounter for general adult medical examination without abnormal findings (principal); E78.2 Mixed hyperlipidemia; Z68.32 Body mass index [BMI] 32.0-32.9, adult; E66.811 Obesity, class 1; I10 Essential (primary) hypertension; K22.70 Barrett's esophagus without dysplasia

== ENCOUNTER → 2024-10-05 15:32 | Outpatient (BNVA) | payer BC, SELFPAY | PROVIDERS: PCP Physician Assistant; Visit Provider Physician Assistant | DX: Z00.00 Encounter for general adult medical examination without abnormal findings (principal); E78.2 Mixed hyperlipidemia; I10 Essential (primary) hypertension; E66.811 Obesity, class 1; K22.70 Barrett's esophagus without dysplasia; Z79.899 Other long term (current) drug therapy | CPT/HCPCS: 96127 ==

== ENCOUNTER 2024-10-10 15:13 | Outpatient (REF) | payer BC, SELFPAY ==
[2024-10-10 15:39] LABS: Hematocrit 48.6 % (42.0-52.0); Hemoglobin 16.6 g/dl (14.0-18.0); Mean Corpuscular HGB Conc 34.2 g/dl (31.0-36.0); Mean Corpuscular Volume 84.8 fL (80.0-98.0); Mean Platelet Volume 9.2 fL (9.4-12.4); Platelet Count 267 X10*3/uL (160-400); Red Blood Count 5.73 X10*6/uL (4.60-5.80); Red Cell Distribution Width 13.6 % (11.0-16.0); White Blood Count 8.6 X10*3/uL (4.8-10.8)
[2024-10-10 16:03] LABS: Alanine Aminotransferase 19 U/L (0-40); Albumin Level 4.4 g/dL (3.5-5.0); Alkaline Phosphatase 67 U/L (39-117); Anion Gap 13 (12-20); Aspartate Amino Transferase 22 U/L (5-37); Bilirubin Total 0.6 mg/dL (0.0-1.0); Blood Urea Nitrogen 14 mg/dL (9-16); Calcium 9.6 mg/dL (8.4-10.2); Carbon Dioxide 27 mmol/L (22-29); Chloride 104 mmol/L (96-108); Cholesterol 243 mg/dL (<200); Estimated Glomerular Filt Rate > 60; Glucose Fasting 93 mg/dL (60-99); HDL Cholesterol 47 mg/dL (>40); LDL Cholesterol Calculated 169 mg/dL (<100); Potassium 3.7 mmol/L (3.3-5.1); Sodium 140 mmol/L (135-145); Triglycerides 139 mg/dL (<150)
[2024-10-10 16:19] LABS: Prostate Specific Antigen Scr 0.45 ng/mL (<0.05-4.0)
[2024-10-10 18:04] LABS: Creatinine Urine 64.26 mg/dL; Microalbum/Creatinine Ratio Ur 9.3 ug/mg cr (<30)
== END 2024-10-10 15:14 | disposition home or self-care (01) ==
LOC: HO.LAB 15:13
PROVIDERS: PCP Physician Assistant; Visit Provider Physician Assistant
DX: I10 Essential (primary) hypertension (principal); E78.2 Mixed hyperlipidemia; Z12.5 Encounter for screening for malignant neoplasm of prostate
CPT/HCPCS: 36415; 80053; 80061; 82043; 82570; 84153; 85027